=== PATIENT | female | born 2000 | race African-American/Black ===

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

== ENCOUNTER 2020-11-11 15:43 | Emergency (ER) | payer OTHER, SELFPAY | END 2020-11-11 16:13 | disposition home or self-care (01) | LOC: NAV ERS 15:43 | DX: L60.0 Ingrowing nail (principal) | CPT/HCPCS: 99283 ==

== ENCOUNTER 2021-02-23 21:48 | Emergency (ER) | payer OTHER ==
[2021-02-23 22:22] LABS: Bilirubin Small (Negative); Blood, Urine Negative (Negative); Clarity Clear (Clear); Glucose, Urine (Dipstick) Negative (Negative); Ketone, Urine > or equal to 80 mg/dL (Negative); Leukocyte Negative (Negative); Nitrite Negative (Negative); Protein, Urine (Dipstick) Negative (Neg-Trace); Specific Gravity, Urine 1.025 (1.005-1.030); Urobilinogen 0.2 mg/dL (Less than 2); pH, Urine 5.5 (5.0-9.0)
[2021-02-23 22:23] LABS: Pregnancy Test - Urine (BHCG) POSITIVE (Negative); Pregu Control Background? CLEAR/WHITE (CLR/WHITE); Pregu Control Bar Appear? YES (CONTROL BAR); Specific Gravity 1.025 (1.002-1.036)
[2021-02-23] MEDS ORDERED: Sodium Chloride 0.9% 1,000 ML ONE (22:33)
[2021-02-23 22:50] LABS: #Basophils 0.1 thou/uL (0.0-0.2); #Lymphocytes 1.3 thou/uL (1.20-3.40); #Monocytes 0.5 thou/uL (0.11-0.59); #Neutrophils 8.3 thou/uL (1.40-6.50); %Eosinophils 0.3 % (0.0-10.0); %Lymphocytes 12.4 % (28.0-48.0); %Monocytes 5.3 % (0.0-4.0); %Neutrophils 81.1 % (31.0-61.0); Hemoglobin 14.1 g/dL (12.0-16.0); Mean Corpuscular HGB CONC 31.9 g/dL (32.0-36.0); Mean Corpuscular Hemoglobin 27.5 pg (25.0-35.0); Mean Corpuscular Volume 86.1 fL (78.0-98.0); Mean Platelet Volume 8.7 fL (7.4-10.4); Platelet Count 350 thou/uL (130-400); RBC Distribution Width 12.7 % (11.5-14.5); Red Blood Cell (RBC) Count 5.15 mill/uL (4.00-5.20); White Blood Cell (WBC) Count 10.2 thou/uL (4.8-10.8)
[2021-02-23 23:02] LABS: ALT (SGPT) 16 U/L (8-55); AST (SGOT) 16 U/L (5-34); Albumin 4.1 g/dL (3.5-5.0); Alkaline Phosphatase 86 U/L (40-100); Anion Gap 14 mmol/L (10-20); BUN (Urea Nitrogen) 8 mg/dL (7.0-18.7); Bilirubin, Total 0.6 mg/dL (0.2-1.2); Calc. Creatinine Clearance 0 mL/min (70-130); Calcium 9.9 mg/dL (7.8-10.44); Carbon Dioxide 23 mmol/L (22-29); Chloride 103 mmol/L (98-107); Glucose 142 mg/dL (70-105); Potassium 3.6 mmol/L (3.5-5.1); Protein, Total 8.1 g/dL (6.0-8.3); Sodium 136 mmol/L (136-145)
== END 2021-02-24 00:45 | disposition short-term general hospital (02) ==
LOC: NAV ERS 21:48
DX: O99.891 Other specified diseases and conditions complicating pregnancy (principal); R10.32 Left lower quadrant pain; R00.0 Tachycardia, unspecified; O99.511 Diseases of the respiratory system complicating pregnancy, first trimester; J45.909 Unspecified asthma, uncomplicated; Z3A.01 Less than 8 weeks gestation of pregnancy
CPT/HCPCS: 80053; 81003; 81025; 84702; 85025; 86900; 86901; 99284; J7050